=== PATIENT | male | born 1995 | race Two or more races ===

== ENCOUNTER 2019-07-22 03:23 | Emergency (ER) | payer SELFPAY ==
[~2019-07-22] VITALS: Ht 175.3 cm; Wt 69.9 kg
[2019-07-22 03:23] VITALS: BP 129/74
--- NOTE | 2019-07-22 03:26 | NUR ---
PT BIB [facility]RIENDS TO ER, CURRENTLY AT BED 9 WITH C/O BLEEDING FROM LEFT FOREARM AFTER SLIPPING AND CUTTING HIMSELF ON THE BED FRAME. ADIPOSE TISSUE IS EXPOSED. NO BONE NOTED. PATIENT IS NOT ANY DISTRESS. AAOX4. NO SOB. BREATHING EVENLY AND UNLABORED. EMT AT BEDSIDE ELEVATING AND PUTTING PRESSURE ON THE LEFT FOREARM.
[2019-07-22] MEDS ORDERED: LIDOCAINE 1%-EPI 1:100,000 20 ML VIAL ONE (03:30)
--- NOTE | 2019-07-22 03:33 | NUR ---
DR. LOW AT BEDSIDE FOR SUTURING.
--- NOTE | 2019-07-22 04:23 | NUR ---
patient is no longer bleeding
--- NOTE | 2019-07-22 04:23 | NUR ---
Patient discharged to home in stable condition. Written and verbal after care instructions given. Patient verbalizes understanding of instruction.
== END 2019-07-22 04:24 | disposition home or self-care (01) ==
LOC: ER 03:25
DX: S51.812A Laceration without foreign body of left forearm, initial encounter (principal); F10.10 Alcohol abuse, uncomplicated; Y90.9 Presence of alcohol in blood, level not specified; W01.0XXA Fall on same level from slipping, tripping and stumbling without subsequent striking against object, initial encounter; Y93.89 Activity, other specified; Y92.89 Other specified places as the place of occurrence of the external cause; Y99.8 Other external cause status
CPT/HCPCS: 12002; 99283; A6403; J3490